=== PATIENT | female | born 1940 | race Caucasian/White ===

== ENCOUNTER → 2017-10-14 | Outpatient (CLI) | payer OTHER ==
[~2017-10-14] MED LIST: KEFLEX500 MG PO; LISINOPRIL20 MG PO; MYRBETRIQ25 MG PO; NORVASC5 MG PO; TOPROL XL25 MG PO; ZESTORETIC 20-1 EAC3 PO; ZOCOR20 MG PO
== END ==
LOC: M.RAD 13:44
DX: Z12.31 Encounter for screening mammogram for malignant neoplasm of breast (principal)

== ENCOUNTER 2018-02-18 00:42 | Emergency (ER) | payer OTHER ==
[~2018-02-18] VITALS: Ht 165.1 cm; Wt 78.0 kg
[2018-02-18 01:18] LABS: ABSOLUTE BASOPHILS 0.1 thou/uL (0.0-0.2); ABSOLUTE EOSINOPHILS 0.2 thou/uL (0.0-0.7); ABSOLUTE LYMPHOCYTES 2.3 thou/uL (0.8-5.3); ABSOLUTE MONOCYTES 0.7 thou/uL (0.0-1.2); ABSOLUTE NEUTROPHILS 4.1 thou/uL (1.6-8.1); BASOPHILS 0.7 %; EOSINOPHILS 2.8 %; HEMATOCRIT 39.5 % (37.0-47.0); HEMOGLOBIN 13.7 gm/dL (12.0-15.0); LYMPHOCYTES 30.8 %; MCHC 34.7 g/dL (28.0-37.0); MCV 86.7 fL (80.0-100.0); MONOCYTES 9.9 %; MPV 9.3 fl. (7.2-11.1); NUCLEATED RBCS 0 /100WBC; PLATELET COUNT* 195 thou/uL (150-400); POLYS 55.8 %; RBC 4.56 mil/uL (4.20-5.00); RDW-CV 13.4 % (10.5-14.5); WBC 7.4 thou/uL (4.0-11.0)
[2018-02-18 01:27] LABS: CALCIUM 9.5 mg/dL (8.5-10.1); CREATININE 0.8 mg/dL (0.6-1.3); POTASSIUM 3.3 mmol/L (3.5-5.1)
[2018-02-18 01:28] LABS: URINE BILIRUBIN NEGATIVE (Negative); URINE BLOOD TRACE (Negative); URINE CLARITY CLEAR; URINE COLOR YELLOW; URINE GLUCOSE-RANDOM NEGATIVE (Negative); URINE KETONES NEGATIVE (Negative); URINE LEUKOCYTES-REFLEX 1+ (Negative); URINE NITRITE-REFLEX NEGATIVE (Negative); URINE PROTEIN NEGATIVE (Negative); URINE UROBILINOGEN 0.2 E.U./dl (0.2-1.0)
[2018-02-18 01:31] LABS: ALBUMIN 3.8 g/dL (3.4-5.0); TOTAL BILIRUBIN 0.6 mg/dL (<0.1-1.0); TOTAL PROTEIN 6.7 g/dL (6.4-8.2)
[2018-02-18 01:37] LABS: CASTS None Seen /LPF (None Seen); CRYSTALS None Seen /LPF (None Seen); MUCUS 0-3 Light strn/LPF (None Seen); SQUAMOUS 0-3 Few /LPF (0-3); URINE RBC 0-2 Rare /HPF (0-2); URINE WBC-REFLEX 6-15 Few /HPF (0-5)
[2018-02-18 03:32] VITALS: BP 120/78
== END 2018-02-18 03:33 | disposition home or self-care (01) ==
LOC: M.ERS 00:42
PROVIDERS: Family Medicine
DX: R10.31 Right lower quadrant pain (principal); R42 Dizziness and giddiness; R19.7 Diarrhea, unspecified; I10 Essential (primary) hypertension; E78.00 Pure hypercholesterolemia, unspecified; Z88.0 Allergy status to penicillin; Z88.2 Allergy status to sulfonamides; Z96.642 Presence of left artificial hip joint

== ENCOUNTER → 2018-06-20 | Outpatient (CLI) | payer OTHER ==
[2018-06-20 09:23] LABS: ALBUMIN 3.8 g/dL (3.4-5.0); ALKALINE PHOSPHATASE 90 U/L (46-116); ANION GAP 6 mmol/L (7-16); BUN 16 mg/dL (7-18); CALCIUM 8.7 mg/dL (8.5-10.1); CHLORIDE 107 mmol/L (98-107); CHOLESTEROL 152 mg/dL (<200); CO2 30 mmol/L (21-32); CREATININE 0.8 mg/dL (0.6-1.3); GLUCOSE 162 mg/dL (70-99); HDL CHOLESTEROL 59 mg/dL (>40); LDL CHOLESTEROL 65 mg/dL (<100); POTASSIUM 3.6 mmol/L (3.5-5.1); SERUM ASSESSMENT Clear; SGOT 33 U/L (15-37); SGPT 58 U/L (30-65); SODIUM 143 mmol/L (136-145); TC:HDL 2.6 Ratio (Not establshd); TOTAL BILIRUBIN 0.8 mg/dL (<0.1-1.0); TRIGLYCERIDE 143 mg/dL (<150); VLDL 29 mg/dL (<40)
== END ==
LOC: M.LAB 08:35
PROVIDERS: Internal Medicine
DX: E11.42 Type 2 diabetes mellitus with diabetic polyneuropathy (principal); E78.2 Mixed hyperlipidemia

== ENCOUNTER 2018-11-19 19:10 | Emergency (ER) | payer OTHER ==
[~2018-11-19] VITALS: Ht 165.1 cm; Wt 77.1 kg
[2018-11-19] MEDS ORDERED: LISINOPRIL20 MG PO (19:22)
[2018-11-19] MEDS ORDERED: COREG25 MG PO (19:23)
[2018-11-19] MEDS ORDERED: LIPITOR40 MG PO (19:23)
[2018-11-19] MEDS ORDERED: METFORMIN HCL500 MG PO (19:23)
[2018-11-19] MEDS ORDERED: NORVASC5 MG PO (19:23)
[2018-11-19] MEDS ORDERED: FOSAMAX 70 MG T70 MG PO (19:24)
[2018-11-19] MEDS ORDERED: NEURONTIN 300300 M1 PO (19:24)
[2018-11-19] MEDS ORDERED: CHLORTHALIDONE25 MG PO (19:24)
[2018-11-19] MEDS ORDERED: DITROPAN XL10 M1 PO (19:25)
[2018-11-19] MEDS ORDERED: CAL-MAG-ZINC T1 EACH PO (19:25)
[2018-11-19] MEDS ORDERED: BAYER CHEWABLE81 MG PO (19:25)
[2018-11-19] MEDS ORDERED: FLAX OIL1000 MG PO (19:25)
[2018-11-19] MEDS ORDERED: NORCO 5-325 TA1 EAC1 PO (20:07)
[2018-11-19 20:25] VITALS: BP 188/62
== END 2018-11-19 20:26 | disposition home or self-care (01) ==
LOC: M.ERS 19:10
DX: S60.211A Contusion of right wrist, initial encounter (principal); S20.20XA Contusion of thorax, unspecified, initial encounter; I10 Essential (primary) hypertension; E78.00 Pure hypercholesterolemia, unspecified; E11.9 Type 2 diabetes mellitus without complications; I25.2 Old myocardial infarction; Z96.642 Presence of left artificial hip joint; Z88.2 Allergy status to sulfonamides; Z88.0 Allergy status to penicillin; Z91.048 Other nonmedicinal substance allergy status; W18.39XA Other fall on same level, initial encounter; Y93.89 Activity, other specified; Y92.094 Garage of other non-institutional residence as the place of occurrence of the external cause; Y99.8 Other external cause status

== ENCOUNTER 2019-08-28 16:38 | Emergency (ER) | payer MEDICARE ==
[~2019-08-28] VITALS: Ht 165.1 cm; Wt 77.1 kg
[~2019-08-28 16:38] MED LIST changes: +BAYER CHEWABLE81 MG PO; +CAL-MAG-ZINC T1 EACH PO; +CHLORTHALIDONE25 MG PO; +COREG25 MG PO; +DITROPAN XL10 M1 PO; +FLAX OIL1000 MG PO; +FOSAMAX 70 MG T70 MG PO; +LIPITOR40 MG PO; +METFORMIN HCL500 MG PO; +NEURONTIN 300300 M1 PO; +NORCO 5-325 TA1 EAC1 PO
[2019-08-28] MEDS ORDERED: SIMVASTATIN80 MG PO (16:55)
[2019-08-28] MEDS ORDERED: TOPROL XL25 MG PO (16:55)
[2019-08-28] MEDS ORDERED: PREMARIN0.625 MG PO (16:56)
[2019-08-28] MEDS ORDERED: MEDROLDOSEPACK PO (16:57)
[2019-08-28] MEDS ORDERED: CHLORTHALIDONE25 MG PO (16:58)
[2019-08-28 17:39] LABS: ABSOLUTE EOSINOPHILS 0.2 thou/uL (0.0-0.7); ABSOLUTE LYMPHOCYTES 2.2 thou/uL (0.8-5.3); ABSOLUTE MONOCYTES 0.8 thou/uL (0.0-1.2); ABSOLUTE NEUTROPHILS 4.8 thou/uL (1.6-8.1); BASOPHILS 0.3 %; EOSINOPHILS 2.1 %; HEMATOCRIT 41.1 % (37.0-47.0); HEMOGLOBIN 13.7 gm/dL (12.0-15.0); LYMPHOCYTES 27.3 %; MCHC 33.5 g/dL (28.0-37.0); MCV 89.6 fL (80.0-100.0); MONOCYTES 9.8 %; MPV 9.8 fl. (7.2-11.1); NUCLEATED RBCS 0 /100WBC; PLATELET COUNT* 208 thou/uL (150-400); POLYS 60.5 %; RBC 4.59 mil/uL (4.20-5.00); RDW-CV 13.4 % (10.5-14.5); WBC 7.9 thou/uL (4.0-11.0)
[2019-08-28 17:49] LABS: CALCIUM 9.3 mg/dL (8.5-10.1); POTASSIUM 3.8 mmol/L (3.5-5.1)
[2019-08-28 17:52] LABS: APTT 26.8 Seconds (25.0-31.3); PROTIME 10.5 Seconds (9.20-11.50)
[2019-08-28 17:54] LABS: ALBUMIN 3.9 g/dL (3.4-5.0); TOTAL BILIRUBIN 0.6 mg/dL (<0.1-1.0); TOTAL PROTEIN 7.2 g/dL (6.4-8.2)
[2019-08-28 18:27] LABS: URINE BILIRUBIN NEGATIVE (Negative); URINE BLOOD NEGATIVE (Negative); URINE CLARITY CLEAR; URINE COLOR YELLOW; URINE GLUCOSE-RANDOM NEGATIVE (Negative); URINE KETONES NEGATIVE (Negative); URINE LEUKOCYTES-REFLEX TRACE (Negative); URINE NITRITE-REFLEX NEGATIVE (Negative); URINE PROTEIN NEGATIVE (Negative); URINE SPECIFIC GRAVITY 1.015 (1.005-1.030); URINE UROBILINOGEN 0.2 E.U./dl (0.2-1.0)
[2019-08-28 18:40] LABS: HYALINE CASTS >10 Many /LPF (None Seen)
[2019-08-28 18:41] LABS: BACTERIA-REFLEX 1-9 Few /HPF (None Seen); SQUAMOUS >10 Many /LPF (0-3); URINE WBC-REFLEX 0-5 Rare /HPF (0-5)
[2019-08-28 18:42] LABS: CRYSTALS None Seen /LPF (None Seen); MUCUS 0-3 Light strn/LPF (None Seen); URINE RBC 0-2 Rare /HPF (0-2)
[2019-08-28 18:56] VITALS: BP 132/54
--- NOTE | 2019-08-29 16:22 | EKG ---
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 08/29/19 1620 42 42 Anthony Mckee MD, [facility] /EPI
== END 2019-08-28 18:57 | disposition home or self-care (01) ==
LOC: M.ERS 16:38
PROVIDERS: Personal Emergency Response Attendant
DX: R53.83 Other fatigue (principal); R42 Dizziness and giddiness; I10 Essential (primary) hypertension; E11.9 Type 2 diabetes mellitus without complications; E78.00 Pure hypercholesterolemia, unspecified; Z96.642 Presence of left artificial hip joint; Z91.048 Other nonmedicinal substance allergy status; Z88.0 Allergy status to penicillin; Z88.2 Allergy status to sulfonamides